=== PATIENT | female | born 1970 | race Caucasian/White ===

== ENCOUNTER 2017-01-18 06:46 | Emergency (ER) | payer MEDICAID, MEDICARE, OTHER ==
[~2017-01-18] VITALS: Ht 157.5 cm; Wt 60.4 kg
[2017-01-18 07:01] VITALS: BP 124/78
[2017-01-18] MEDS ORDERED: ACETAMINOPHEN 325 MG TAB PO ONE (07:45)
--- NOTE | 2017-01-18 08:53 | REP ---
Left middle finger four views : There is no fracture or dislocation. Mineralization and joint spaces are normal. There are no calcifications or foreign bodies. Impression: Negative left middle finger . Signed by Guy Haney MD 01/18/2017 08:45 A
[2017-01-18] MEDS ORDERED: TYLE325T5 PO (08:55)
[2017-01-18] MEDS ORDERED: AUGM875T28 PO (08:55)
[2017-01-19] MEDS ORDERED: KETO10TAB PO (09:42)
== END 2017-01-18 09:03 | disposition home or self-care (01) ==
LOC: M ED 06:46
DX: L03.012 Cellulitis of left finger (principal)

== ENCOUNTER 2017-01-19 07:47 | Emergency (ER) | payer MEDICAID ==
[~2017-01-19] VITALS: Ht 157.5 cm; Wt 62.7 kg
[~2017-01-19 07:47] MED LIST: AUGM875T28 PO; TYLE325T5 PO
[2017-01-19] MEDS ORDERED: KETOROLAC 60 MG/2 ML VIAL (J1885) IM ONE (09:30)
[2017-01-19] MEDS ORDERED: KETO10TAB PO (09:42)
[2017-01-19 09:54] VITALS: BP 111/72
== END 2017-01-19 09:56 | disposition home or self-care (01) ==
LOC: M ED 07:47
DX: S60.032A Contusion of left middle finger without damage to nail, initial encounter (principal); J45.909 Unspecified asthma, uncomplicated; F17.210 Nicotine dependence, cigarettes, uncomplicated; W23.1XXA Caught, crushed, jammed, or pinched between stationary objects, initial encounter; Y92.018 Other place in single-family (private) house as the place of occurrence of the external cause; Y99.9 Unspecified external cause status; Y93.9 Activity, unspecified
CPT/HCPCS: 96372; 99283; J1885